=== PATIENT | female | born 1970 ===

== ENCOUNTER 2016-10-14 20:52 | Emergency (ER) | payer OTHER ==
[2016-10-14 21:27] VITALS: BMI 25.4
--- NOTE | 2016-10-14 21:32 | ED PDOC ---
HPI: Back Time Seen by Provider: 10/14/16 21:11 Chief Complaint (Nursing): Back Pain Chief Complaint (Provider): Back Pain History Per: Patient, Family (son ) History/Exam Limitations: no limitations, language barrier Onset/Duration Of Symptoms: Persistent (1 week ) Current Symptoms Are (Timing): Still Present Quality Of Discomfort: "Pain" Additional Complaint(s): Nereida Arenas is a 46 y/o female presenting to the ER on 10/14/2016 with complaints of back pain x1 week. Patient reports pain began after moving furniture. Denies any bowel or urinary incontinence, fever, numbness or tingling sensation, or any similar episodes in the past. She states she has been taking motrin for the pain, experiencing minimal relief, but did not take any prior to arrival. Past Medical History Reviewed: Historical Data, Nursing Documentation, Vital Signs - Medical History PMH: No Chronic Diseases - Surgical History Surgical History: Cholecystectomy (2014), - Family History Family History: States: Unknown Family Hx, Diabetes - Home Medications Home Medications: Ambulatory Orders Medication Instructions Recorded Naproxen [Naprosyn] 500 mg PO Q12H #20 tab 03/21/16 Sulfamethoxazole/Trimethoprim 1 tab PO BID #20 tab 03/21/16 [Bactrim DS 800 mg-160 mg] Doxycycline Hyclate 100 mg PO Q12 #28 tab 06/20/16 Cyclobenzaprine [Cyclobenzaprine 10 mg PO Q8H PRN #12 tab 10/14/16 HCl] Ketorolac Tromethamine [Toradol] 10 mg PO Q8H PRN #20 tab 10/14/16 - Allergies Allergies/Adverse Reactions: Allergies Allergy/AdvReac Type Severity Reaction Status Date / Time FISH Allergy NAUSEA Verified 10/28/15 23:37 Penicillins Allergy RASH Verified 10/28/15 23:37 Review of Systems ROS Statement: Except As Marked, All Systems Reviewed And Found Negative Constitutional: Negative for: Fever Genitourinary Female: Negative for: Incontinence Musculoskeletal: Positive for: Back Pain Neurological: Negative for: Numbness Physical Exam - Reviewed Nursing Documentation Reviewed: Yes Vital Signs Reviewed: Yes - Physical Exam Appears: Positive for: Non-toxic, No Acute Distress Head Exam: Positive for: ATRAUMATIC, NORMOCEPHALIC Skin: Positive for: Normal Color, Warm, Dry Eye Exam: Positive for: Normal appearance, EOMI, PERRL Neck: Positive for: Normal, Painless ROM, Supple Cardiovascular/Chest: Positive for: Regular Rate, Rhythm. Negative for: Murmur Respiratory: Positive for: Normal Breath Sounds. Negative for: Respiratory Distress Back: Positive for: Normal Inspection, Other ((+) midline tenderness, with more pain on the right side of the back upon palpation) Extremity: Positive for: Normal ROM. Negative for: Deformity Neurologic/Psych: Positive for: Alert, Oriented. Negative for: Motor/Sensory Deficits Medical Decision Making Medical Decision Makin:11 Initial Impression- Back Pain Initial Plan- * Urine Dip * Urine Preg * Flexeril 10 mg PO * Toradol 15 mg IM * XR LS Spine * Re-evaluate Pt pauliely has menses. Discussed repeat urine when menses is over. PT reports feeling better on re-evaluation at 2240. X-ray without fracture, normal alignment. Normal bowel pattern. Documented by Marta Summers, acting as a scribe for Katherine Magana PA-C All medical record entries made by the Scribe were at my direction and personally dictated by me. I have reviewed the chart and agree that the record accurately reflects my personal performance of the history, physical exam, medical decision making, and the department course for this patient. I have also personally directed, reviewed, and agree with the discharge instructions and disposition. Disposition - Clinical Impression Clinical Impression: Back pain - Patient ED Disposition Is Patient to be Admitted: No Counseled Patient/Family Regarding: Diagnosis, Need For Followup, Rx Given - Disposition Referrals: [facility] [Outside] [facility] [Outside] Disposition: Routine/Home Disposition Time: 22:49 Condition: GOOD Prescriptions: Cyclobenzaprine [Cyclobenzaprine HCl] 10 mg PO Q8H PRN #12 tab PRN Reason: Muscle Spasm Ketorolac Tromethamine [Toradol] 10 mg PO Q8H PRN #20 tab PRN Reason: Pain Instructions: Acute Low Back Pain (ED) Print Language: TAMAZIGHT
[2016-10-14 21:36] VITALS: BP 132/82; PULSE 71; RESP 20; TEMP 100; O2SAT 100
--- NOTE | 2016-10-15 09:36 | RAD ---
PROCEDURE: Lumbar spine HISTORY: Low back pain, after move stuff, (+) tender COMPARISON: No prior. FINDINGS: BONES: The current study reveals no acute compression fractures no retropulsed fragments. Vertebral bodies exhibit normal stature on. There is a mild straightening of the normal lumbar lordosis however vertebral bodies otherwise exhibit normal alignment. Additionally, there appears to be a very subtle subclinical dextroscoliosis centered at the L3-L4 level. Facets normally aligned. Disc space heights are relatively maintained. The facet joints are slightly overgrown at the L5-S1 and L4-L5 levels. DISC SPACES: As above. OTHER FINDINGS: None. IMPRESSION: No acute fractures. Mild straightening of the normal lumbar lordosis with very subtle subclinical dextroscoliosis. See above discussion for additional findings and details.
== END 2016-10-14 23:50 | disposition home or self-care (01) ==
LOC: H.ER 20:52
DX: M54.5 Low back pain (principal); Z88.0 Allergy status to penicillin

== ENCOUNTER 2016-10-28 21:05 | Emergency (ER) | payer SELFPAY ==
[2016-10-28 21:05] VITALS: BMI 25.4
[2016-10-28 21:21] VITALS: BP 115/59; PULSE 77; RESP 16; TEMP 98.3; O2SAT 99
--- NOTE | 2016-10-28 22:05 | ED PDOC ---
HPI: CCC, URI, Sore Throat Time Seen by Provider: 10/28/16 21:43 Chief Complaint (Nursing): ENT Problem Chief Complaint (Provider): Left ear pain, throat pain History Per: Patient History/Exam Limitations: no limitations Onset/Duration Of Symptoms: Days (3) Current Symptoms Are (Timing): Still Present Location Of Pain: Ear(s) (Left). denies: Diffuse Myalgias, Headache Sick Contacts (Context): None Associated Symptoms: Sore Throat. denies: Fever, Chills, Nasal Congestion Ear Symptoms: Bilateral: None Severity: Moderate Pain Scale Rating Of: 5 Past Medical History Reviewed: Historical Data, Nursing Documentation, Vital Signs Vital Signs: Last Vital Signs Temp 98.3 F 10/28/16 21:18 Pulse 77 10/28/16 21:18 Resp 16 10/28/16 21:18 BP 115/59 L 10/28/16 21:18 Pulse Ox 99 10/28/16 22:08 - Medical History PMH: No Chronic Diseases - Surgical History Surgical History: Cholecystectomy (2014), - Family History Family History: States: Unknown Family Hx, Diabetes - Living Arrangements Living Arrangements: Alone - Social History Current smoker - smoking cessation education provided: No Alcohol: None Drugs: Denies - Home Medications Home Medications: Ambulatory Orders Medication Instructions Recorded Naproxen [Naprosyn] 500 mg PO Q12H #20 tab 03/21/16 Sulfamethoxazole/Trimethoprim 1 tab PO BID #20 tab 03/21/16 [Bactrim DS 800 mg-160 mg] Doxycycline Hyclate 100 mg PO Q12 #28 tab 06/20/16 Cyclobenzaprine [Cyclobenzaprine 10 mg PO Q8H PRN #12 tab 10/14/16 HCl] Ketorolac Tromethamine [Toradol] 10 mg PO Q8H PRN #20 tab 10/14/16 Fexofenadine/Pseudoephedrine 1 each PO BID PRN #12 tab.er.12h 10/28/16 [Nataliia-D 12 Hour Tablet] Hydrocortisone 1% Cream [Cortizone 1 / TP BID #1 tube 10/28/16 1% Cream] - Allergies Allergies/Adverse Reactions: Allergies Allergy/AdvReac Type Severity Reaction Status Date / Time FISH Allergy NAUSEA Verified 10/28/15 23:37 Penicillins Allergy RASH Verified 10/28/15 23:37 Review of Systems ROS Statement: Except As Marked, All Systems Reviewed And Found Negative Constitutional: Negative for: Fever, Chills ENT: Positive for: Ear Pain (Left) Gastrointestinal: Negative for: Nausea, Vomiting Skin: Positive for: Rash (Neck x 2 weeks ) Physical Exam - Reviewed Nursing Documentation Reviewed: Yes Vital Signs Reviewed: Yes - Physical Exam Appears: Positive for: Well, Non-toxic, No Acute Distress Head Exam: Positive for: ATRAUMATIC, NORMAL INSPECTION, NORMOCEPHALIC Skin: Positive for: Warm. Negative for: Normal Color (dry patch on anterior neck) Eye Exam: Positive for: Normal appearance ENT: Negative for: Normal ENT Inspection (Bilateral Tm without perforation.) Neck: Positive for: Normal, Painless ROM Cardiovascular/Chest: Positive for: Regular Rate, Rhythm Respiratory: Positive for: Normal Breath Sounds. Negative for: Accessory Muscle Use, Respiratory Distress Gastrointestinal/Abdominal: Positive for: Normal Exam, Bowel Sounds, Soft Back: Positive for: Normal Inspection Extremity: Positive for: Normal ROM Neurologic/Psych: Positive for: Alert, Oriented - ECG O2 Sat by Pulse Oximetry: 99 Medical Decision Making Medical Decision Making: Strep (-) Disposition - Clinical Impression Clinical Impression: Rash, Viral illness - Patient ED Disposition Is Patient to be Admitted: No Counseled Patient/Family Regarding: Diagnosis, Need For Followup, Rx Given - Disposition Disposition: Routine/Home Disposition Time: 23:06 Condition: GOOD Prescriptions: Fexofenadine/Pseudoephedrine [Nataliia-D 12 Hour Tablet] 1 each PO BID PRN #12 tab.er.12h PRN Reason: Cough And Congestion Hydrocortisone 1% Cream [Cortizone 1% Cream] 1 / TP BID #1 tube Instructions: Viral Syndrome (ED)
== END 2016-10-28 23:19 | disposition home or self-care (01) ==
LOC: H.ER 21:05
DX: B34.9 Viral infection, unspecified (principal); R05 Cough

== ENCOUNTER 2017-02-21 12:40 | Emergency (ER) | payer SELFPAY ==
[2017-02-21 12:52] VITALS: BMI 25.4
[2017-02-21 13:12] VITALS: BP 126/76; PULSE 76; RESP 18; TEMP 98; O2SAT 100
[2017-02-21] MEDS ORDERED: Sodium Chloride 0.9% 1,000 ML IV STA (13:49)
--- NOTE | 2017-02-21 13:52 | ED PDOC ---
HPI: Headache History Per: Patient History/Exam Limitations: language barrier ([employer] used, # [id number]) Onset/Duration Of Symptoms: Hrs Current Symptoms Are (Timing): Still Present Severity: Moderate Pain Scale Rating Of: 6 Quality: Pressure, Other (Pulsating ) Preceeding Symptoms: None Associated Symptoms: Other (sensitivity to light and sound) Additional Complaint(s): 47 YO Female with hx of headaches presents to [facility] ER for headache. Per patient , headache started 3AM this morning, and was initially a 7/10, but went down to a 6/10 after pt took 2 Advils this morning. Pain is located frontal/temporal/ occipital areas. There is sensitivity to light and sound. No thunderclap headache. Pt has pain in her neck as well. No neck stiffness, and not limited by ROM. In addition, pt endorses 3x episodes of emesis starting 3AM this morning , second episode 7AM and then last episode at 11AM. Emesis of normal food, yellow in color and no blood noted. Of note, pt states that she has hx of headaches for the past 7-8 years. She has episodic headaches, that last a few hours and then resolves. She was recently sent in for a MRI by her PCP. Findings included 6x4.7cm (likely) arachnoid cyst in the anterior right frontal lobe. Pt was referred to Neurologist, but she was not able to see the doctor. Has a follow up with PCP on 03/08/2017. MRI 11/01/2016-- Findings included 6x4.7cm (likely) arachnoid cyst anterior right frontal lobe. <Savannah Mauricio - Last Filed: 02/21/17 15:56> <Steven Fox - Last Filed: 02/23/17 00:28> Time Seen by Provider: 02/21/17 13:16 Chief Complaint (Nursing): Headache Supervising Attending Note - Supervising Attending Note The Documented history was done by the: Physician Multimedia Engineer The documented physical exam was done by the: Physician Multimedia Engineer The documented procedures were done by the: Physician Multimedia Engineer - Attestation: I have personally seen and examined this patient.: Yes I have fully participated in the care of the patient.: Yes <Steven Fox Y - Last Filed: 02/23/17 00:28> Past Medical History Reviewed: Historical Data, Nursing Documentation, Vital Signs Vital Signs: Last Vital Signs Temp 98 F 02/21/17 13:09 Pulse 76 02/21/17 13:09 Resp 18 02/21/17 13:09 BP 126/76 02/21/17 13:09 Pulse Ox 100 02/21/17 13:09 - Surgical History Surgical History: Cholecystectomy (2014), Other surgeries: R breast cyst removal 2013 - Family History Family History: States: Unknown Family Hx, Diabetes - Social History Current smoker - smoking cessation education provided: No Ex-Smoker (has not smoked in the last 12 months): No Alcohol: None Drugs: Denies <Savannah Mauricio - Last Filed: 02/21/17 15:56> Vital Signs: Last Vital Signs Temp 98 F 02/21/17 13:09 Pulse 76 02/21/17 13:09 Resp 18 02/21/17 13:09 BP 126/76 02/21/17 13:09 Pulse Ox 100 02/21/17 15:58 <Steven Fox - Last Filed: 02/23/17 00:28> - Home Medications Home Medications: Ambulatory Orders Medication Instructions Recorded Naproxen [Naprosyn] 500 mg PO Q12H #20 tab 03/21/16 Sulfamethoxazole/Trimethoprim 1 tab PO BID #20 tab 03/21/16 [Bactrim DS 800 mg-160 mg] Doxycycline Hyclate 100 mg PO Q12 #28 tab 06/20/16 Cyclobenzaprine [Cyclobenzaprine 10 mg PO Q8H PRN #12 tab 10/14/16 HCl] Ketorolac Tromethamine [Toradol] 10 mg PO Q8H PRN #20 tab 10/14/16 Fexofenadine/Pseudoephedrine 1 each PO BID PRN #12 tab.er.12h 10/28/16 [Nataliia-D 12 Hour Tablet] Hydrocortisone 1% Cream [Cortizone 1 / TP BID #1 tube 10/28/16 1% Cream] - Allergies Allergies/Adverse Reactions: Allergies Allergy/AdvReac Type Severity Reaction Status Date / Time FISH Allergy NAUSEA Verified 10/28/15 23:37 Penicillins Allergy RASH Verified 10/28/15 23:37 Review of Systems ROS Statement: Except As Marked, All Systems Reviewed And Found Negative Gastrointestinal: Positive for: Vomiting (3x episodes ) Neurological: Positive for: Headache <Savannah Mauricio - Last Filed: 02/21/17 15:56> Physical Exam - Reviewed Nursing Documentation Reviewed: Yes Vital Signs Reviewed: Yes - Physical Exam Appears: Positive for: Well, Non-toxic, No Acute Distress Head Exam: Positive for: ATRAUMATIC, NORMAL INSPECTION, NORMOCEPHALIC Skin: Positive for: Normal Color, Warm, DRY Eye Exam: Positive for: EOMI, Normal appearance, PERRL Neck: Positive for: Normal, Painless ROM Cardiovascular/Chest: Positive for: Regular Rate, Rhythm Respiratory: Positive for: CNT, Normal Breath Sounds Gastrointestinal/Abdominal: Positive for: Normal Exam, Bowel Sounds, Soft Back: Positive for: Normal Inspection Extremity: Positive for: Normal ROM Neurologic/Psych: Positive for: Alert, 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 Reflexes are wnl. Negative Brudzinski's sign. ) <Savannah Mauricio Last Filed: 02/21/17 15:56> - Laboratory Results Result Diagrams: 02/21/17 14:10 02/21/17 14:10 - ECG O2 Sat by Pulse Oximetry: 100 - Progress ED Course And Treament: Blood work was drawn and pt was started on IVF. Blood work wnl with anemia with hb/hct 10.8/33.6. Pt reevaluated, she feels better, the headache has resolved at this time. No pain in the neck. No nausea, no vomiting. Patient understands her instructions. Encouraged to start OTC Iron for anemia. Pt has a follow up apt with PCP on 03/08/17, will get an apt with neurology. Re-evaluation Time: 15:35 Condition: Improved <Savannah Mauricio Last Filed: 02/21/17 15:56> - Laboratory Results Result Diagrams: 02/21/17 14:10 02/21/17 14:10 <Steven Fox - Last Filed: 02/23/17 00:28> Disposition - Patient ED Disposition Is Patient to be Admitted: No Discussed With : Steven Fox Doctor Will See Patient In The: Office (Pt has follow up with PCP 03/08/17) - Disposition Disposition: Routine/Home Disposition Time: 15:48 <Savannah Mauricio - Last Filed: 02/21/17 15:56> <Steven Fox - Last Filed: 02/23/17 00:28> - Clinical Impression Clinical Impression: Headache - Disposition Condition: IMPROVED Additional Instructions: follow up with your neurologist/neurosurgeon as instructed Take iron for anemia return to the ED with any worsening or concerning symptoms Instructions: General Headache (ED) Forms: [employer] (Burundian)
[2017-02-21 14:25] LABS: BASO % 0.5 % (0.0-2.0); EOS # 0.1 K/uL (0.0-0.7); EOS % 2.3 % (0.0-4.0); HEMATOCRIT 33.6 % (34.0-47.0); LYMPH # 1.8 K/uL (1.0-4.3); MEAN CORPUSCULAR HEMOGLOBIN 26.4 pg (27.0-31.0); MEAN CORPUSCULAR HGB CONC 32.1 g/dL (33.0-37.0); MEAN PLATELET VOLUME 9.7 fl (7.2-11.7); MONO # 0.5 K/uL (0.0-0.8); MONO % 9.2 % (0.0-10.0); NEUT # 3.3 K/uL (1.8-7.0); WHITE BLOOD COUNT 5.8 K/uL (4.8-10.8)
[2017-02-21 14:39] LABS: ALB/GLOB RATIO 1.3 (1.0-2.1); ALKALINE PHOSPHATASE 61 U/L (38-126); ALT/SGPT 21 U/L (9-52); AST/SGOT 26 U/L (14-36); BILIRUBIN,TOTAL 0.3 mg/dl (0.2-1.3); BLOOD UREA NITROGEN 11 mg/dl (7-17); CARBON DIOXIDE 25 mmol/L (22-30); CHLORIDE 106 mmol/L (98-107); GFR AFRICAN-AMERICAN > 60; GLUCOSE,RANDOM 91 mg/dL (65-105); POTASSIUM 4.1 MMOL/L (3.6-5.0); SODIUM 142 mmol/l (132-148); TOTAL PROTEIN 7.2 G/DL (6.3-8.2)
== END 2017-02-21 15:59 | disposition home or self-care (01) ==
LOC: H.ER 12:40
DX: R51 Headache (principal)
CPT/HCPCS: 80053; 85025; 96374; 99282; J2765; J7040

== ENCOUNTER 2017-08-13 14:18 | Emergency (ER) | payer OTHER ==
[2017-08-13 14:19] VITALS: BMI 25.4
[2017-08-13 14:39] VITALS: BP 106/65; PULSE 74; RESP 18; TEMP 98.2; O2SAT 99
--- NOTE | 2017-08-13 15:45 | ED PDOC ---
HPI: Headache Time Seen by Provider: 08/13/17 14:41 Chief Complaint (Nursing): Headache Chief Complaint (Provider): Headache History Per: Patient History/Exam Limitations: no limitations Onset/Duration Of Symptoms: Days (x 3) Current Symptoms Are (Timing): Still Present Quality: "Pain" Associated Symptoms: Photophobia, Nausea, Vomiting Additional Complaint(s): 47 year old female with a history of a brain cyst presents to the ED complaining of a headache, with associated nausea, vomiting and photophobia, beginning 3 days ago. Patient reports that the headache has intensified today prompting the visit to the ED. She took Advil with minimal relief with the last dose taken today at 08:00. Patient has not vomited today. She reports having similar headaches in the past, states that she has a brain cyst which was diagnosed by a previous MRI done here in this hospital, but she is not aware of the location or size of the cyst. Her neurologist, Dr. Smith Ko advised her to get repeat MRI in 6 months. Patient recently saw her PMD in June who agreed with plan. Otherwise: (-) thunderclap headache, (-) worse headache of life, (-) URI symptoms, (-) fever, (-) trauma, (-) focal numbness or weakness, ( -) subjective neurologic symptoms. PMD: [facility] Past Medical History Reviewed: Historical Data, Nursing Documentation, Vital Signs Vital Signs: Last Vital Signs Temp 98.2 F 08/13/17 14:37 Pulse 74 08/13/17 14:37 Resp 18 08/13/17 14:37 BP 106/65 08/13/17 14:37 Pulse Ox 99 08/13/17 14:37 - Medical History Other PMH: arachnoid cyst, fibroids - Surgical History Surgical History: Cholecystectomy (2015), Other surgeries: tubal ligation and removal of breast mass - Family History Family History: States: Unknown Family Hx, Diabetes - Home Medications Home Medications: Ambulatory Orders Medication Instructions Recorded Naproxen [Naprosyn] 500 mg PO Q12H #20 tab 03/21/16 Sulfamethoxazole/Trimethoprim 1 tab PO BID #20 tab 03/21/16 [Bactrim DS 800 mg-160 mg] Doxycycline Hyclate 100 mg PO Q12 #28 tab 06/20/16 Cyclobenzaprine [Cyclobenzaprine 10 mg PO Q8H PRN #12 tab 10/14/16 HCl] Ketorolac Tromethamine [Toradol] 10 mg PO Q8H PRN #20 tab 10/14/16 Fexofenadine/Pseudoephedrine 1 each PO BID PRN #12 tab.er.12h 10/28/16 [Nataliia-D 12 Hour Tablet] Hydrocortisone 1% Cream [Cortizone 1 / TP BID #1 tube 10/28/16 1% Cream] - Allergies Allergies/Adverse Reactions: Allergies Allergy/AdvReac Type Severity Reaction Status Date / Time FISH Allergy NAUSEA Verified 10/28/15 23:37 Penicillins Allergy RASH Verified 10/28/15 23:37 Review of Systems ROS Statement: Except As Marked, All Systems Reviewed And Found Negative Eyes: Positive for: Other (photophobia) Gastrointestinal: Positive for: Nausea, Vomiting Neurological: Positive for: Headache Physical Exam - Reviewed Nursing Documentation Reviewed: Yes Vital Signs Reviewed: Yes - Physical Exam Comments: GENERAL APPEARANCE: Patient is awake, alert, oriented x 3, in no acute distress. SKIN: Warm, dry; (-) cyanosis; (-) rash. HEAD: (-) scalp swelling or tenderness, (-) temporal artery tenderness. EYES: (-) conjunctival pallor, (-) scleral icterus. ENMT: (-) sinus tenderness; mucous membranes moist. NECK: (-) tenderness, (-) stiffness, (-) meningismus, (-) lymphadenopathy. CHEST AND RESPIRATORY: (-) rales, (-) rhonchi, (-) wheezes; breath sounds equal bilaterally. HEART AND CARDIOVASCULAR: (-) irregularity; (-) murmur, (-) gallop. ABDOMEN AND GI: Soft; (-) tenderness. EXTREMITIES: (-) deformity. NEURO AND PSYCH: Mental status as above. powder monkey: PEERL; EOMI; (-) facial asymmetry; tongue and uvula midline. (-) trauma, (-) focal weakness and numbness. Strength and DTRs symmetric. - ECG O2 Sat by Pulse Oximetry: 99 (RA) Pulse Ox Interpretation: Normal Medical Decision Making Medical Decision Making: Time: 14:37 Impression: headache, likely migraine Initial Plan: --Reglan 10 mg IM --Toradol 60 mg IM Previous records of MRI of brain w/ & w/o contrast performed in October 2016, indicates: 6 x 4.7 cm cyst in right frontal lobe, likely arachnoid cyst. On reevaluation, patient reports significant improvement of her headache. Patient states that she has a prescription in the pharmacy waiting to be picked up, this medication was prescribed by her primary care doctor for her headache, does not recall the name of the medicine. On exam, neck is supple, repeat neuro exam shows no acute focal findings. Advised to follow up with primary care physician and neurologist in 1-2 days without fail. Follow up with plan of treatment as planned with neurologist. Advised to take medication as prescribed by her doctor. Return to the emergency room at any time for any new or worsening symptoms. Patient states she fully agrees with and understands discharge instructions. States that she agrees with the plan and disposition. Verbalized and repeated discharge instructions and plan. I have given the patient opportunity to ask any additional questions. Disposition - Clinical Impression Clinical Impression: Acute headache - Patient ED Disposition Is Patient to be Admitted: No Counseled Patient/Family Regarding: Diagnosis, Need For Followup - Disposition Disposition: Routine/Home Disposition Time: 15:00 Condition: STABLE Additional Instructions: Thank you for letting us take care of you today. You were treated for headache. The emergency medical care you received today was directed at your acute symptoms. Take medications as prescribed by your doctor. It may take several days for your symptoms to resolve. Return to the Emergency Department if your symptoms worsen, do not improve, or if you have any other problems. Please contact your doctor in 2 days for re-evaluation and follow up. Bring any paperwork you were given at discharge with you along with any medications you are taking to your follow up visit. Our treatment cannot replace ongoing medical care by a primary care provider (PCP) outside of the emergency department. Thank you for allowing the [facility] team to be part of your care today. Instructions: Migraine Headache (DC), Acute Headache (ED) Forms: [email or web address] (Cameroonian), [facility] ED School/Work Excuse Print Language: ANDORRAN - PA / CEMENTER MACHINE APPLICATOR / Resident Statement / has reviewed & agrees with the documentation as recorded.
== END 2017-08-13 15:57 | disposition home or self-care (01) ==
LOC: H.ER 14:18
DX: R51 Headache (principal); R11.2 Nausea with vomiting, unspecified; Z88.0 Allergy status to penicillin
CPT/HCPCS: 96372; 99285; J1885; J2765